=== PATIENT | female | born 1955 | race Caucasian/White ===

== ENCOUNTER 2017-03-01 07:43 | Day surgery (SDC) | payer BC ==
--- NOTE | 2017-02-10 16:25 | HP ---
PREOPERATIVE HISTORY AND PHYSICAL: DATE OF ADMISSION/SURGERY: 03/11/17 [facility] ATTENDING SURGEON: Karyn Casiano MD (DICTATED BY MCKAYLA ZHOU) PROCEDURE: Right ring finger trigger finger release and excision of mass. CHIEF COMPLAINT: Right ring finger triggering and adjacent mass. HISTORY OF PRESENT ILLNESS: This is a 61-year-old female who complains of locking of her right ring finger and a mass on the volar aspect of the right ring finger as well. It has been bothering her for several months. 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 She denies any associated tingling or numbness. She denies injury. She is interested in surgical intervention at this time in the form of a right ring finger trigger release and excision of the mass. PAST MEDICAL HISTORY: Unremarkable. PAST SURGICAL HISTORY: 1. . 2. Ovarian cyst removal. 3. Left shoulder surgery. 4. Basal cell carcinoma removal from nose. CURRENT MEDICATIONS: 1. Ibuprofen 400 mg t.i.d. p.r.n. 2. Vitamin D 1000 units daily. ALLERGIES: No known drug allergies. FAMILY MEDICAL HISTORY: Significant for oral cancer. SOCIAL HISTORY: The patient is retired. She denies tobacco use and recreational drug use. She does admit to alcohol use on occasion. REVIEW OF SYSTEMS: General: Negative for fevers, chills, or night sweats. No known anesthesia problems. HEENT: Negative for headache, lightheadedness or syncopal episodes. Integumentary: Negative for abrasions, lesions, or open wounds. Cardiothoracic: Negative for hypertension, chest pain, palpitations or edema. Pulmonary: Negative for shortness of breath with exertion, chronic cough, COPD. GI: Positive for occasional nausea in the evening. Negative for vomiting, diarrhea, constipation, or GERD. : Negative for nocturia, urinary frequency, urgency, history of UTIs or kidney problems. Musculoskeletal: Positive for current complaint along with intermittent back pain. Neurological: Negative for paresthesias, numbness, history of seizures, stroke or epilepsy. Endocrine: Negative for diabetes or thyroid issues. Hematologic: Negative for easy bruising, anemia, excessive bleeding or history of DVT. Infectious Disease : Negative for history of MRSA, hepatitis C or HIV. PHYSICAL EXAMINATION GENERAL: A well-developed, well-nourished 61-year-old female in no acute distress. VITAL SIGNS: Height 5 feet 1/2 inch, weight 135 pounds, pulse rate 60, blood pressure 136/84. HEENT: Normocephalic, atraumatic. Pupils are equal, round, and reactive to light and accommodation. Extraocular movements are intact. Throat is clear. NECK: Supple. No palpable lymph nodes. PULMONARY: Lungs are clear to auscultation bilaterally. No wheezes, rales or rhonchi. CARDIOTHORACIC: Regular rate and rhythm. S1, S2. No murmurs, rubs, or gallops. No edema. ABDOMEN: Positive bowel sounds. Soft, nontender. MUSCULOSKELETAL: On exam of her right hand, she has a cystic mass at the A1 abhinav of her ring finger. She lacked a little bit of full extension. When she flexes, her finger locks in flexion. Skin is intact. Neurovascular function is intact. NEUROLOGIC: Alert and oriented x3. Cranial nerves II through XII are intact. Sensation is intact to light touch. PERIPHERAL VASCULAR: 2+ radial and ulnar pulses. Negative Rodney test. IMAGING STUDIES: X-rays of the right hand, AP lateral and oblique appear normal. IMPRESSION: Right ring finger trigger finger with ganglion cyst on the tendon sheath. PLAN: The patient is scheduled to undergo a right ring finger trigger finger release and excision of mass with Dr. Casiano on 03/11/17. She will return to the office 10 to 14 days postop for followup and suture removal. A prescription for Ultracet was e-scribed to the patient's pharmacy for postoperative pain management. MCKAYLA ZHOU [id number]/[facility] #: [id number] DUANE
[~2017-03-01 07:43] MED LIST: Lidocaine 1% INJ* 10 MG/ML 30 ML SDV ONE
[2017-03-01] MEDS ORDERED: Buffered Lidocaine 1% SYRIN* 5 ML/SYR SYRINGE ONE (08:05)
[2017-03-01] MEDS ORDERED: fentaNYL* 50 MCG/ML 2 ML VIAL (100 MCG VIAL) ONE (09:34)
[2017-03-01] MEDS ORDERED: Midazolam* 1 MG/ML 2 ML VIAL (2 MG) ONE (09:34)
[2017-03-01 10:14] VITALS: BP 130/75
--- NOTE | 2017-03-02 02:49 | OP ---
OPERATIVE REPORT: DATE OF OPERATION: 03/01/17 - [facility] DATE OF : 51 SURGEON: Karyn Casiano MD ORDER TAKER: MCKAYLA Scanlon ANESTHESIOLOGIST: Charli Briones MD ANESTHESIA: Local Mac. PRE-OP DIAGNOSIS: Right ring finger trigger finger, and right ring finger mass and right wrist mass. POST-OP DIAGNOSIS: Right ring finger trigger finger, and right ring finger mass and right wrist mass. OPERATIVE PROCEDURE: Right ring finger trigger release, right ring finger mass excision, and right wrist mass excision. ESTIMATED BLOOD LOSS: Zero. TOURNIQUET TIME: About 15 minutes. INDICATIONS FOR PROCEDURE: Kimberley is a 61-year-old female with painful triggering of her right ring finger and a mass associated with it. Additionally , she has a mass at the tip of her radial styloid. She presents for excision of 2 masses and her ring finger trigger release. DESCRIPTION OF PROCEDURE: The patient was brought to the operating room and was given a sedation anesthetic and a local infiltration with a total of 10 cc of 1% plain lidocaine. The skin of her right hand and forearm was prepped and draped in the usual sterile fashion. The hand and forearm were exsanguinated and the tourniquet elevated to 250 mmHg. A transverse incision was made centered over the A1 abhinav of the right ring finger. We dissected through the subcutaneous tissue down to the A1 abhinav. The digital neurovascular bundles were retracted by the surgical consultant, Ellen Curry. There was a ganglion cyst emanating from the flexor tendon sheath and this was removed. The sheath was completely incised longitudinally releasing the FDP and FDS tendons, which were in good condition. The wound was irrigated and the skin edges were reapproximated with 4-0 Nylon suture. Next, the longitudinal incision was made on the radial aspect of the wrist. I dissected through the subcutaneous tissue. Braces of the radial sensory nerve were located and retracted by the surgical consultant, Ellen Curry. There was a ganglion cyst emanating from the first dorsal compartment. This was removed and sent for pathology. The remainder of the compartment was released longitudinally and the APL and EPB tendons were in good condition. The wounds was irrigated and the skin edges were reapproximated with 4-0 nylon suture. The wound was dressed with Xeroform, 4x4, Webril, and an JONO wrap. The patient tolerated the procedure well and was brought to the recovery room in good condition. [id number]/[facility] #: [id number] DUANE
== END 2017-03-01 10:35 | disposition home or self-care (01) ==
LOC: OREAST 07:43
PROVIDERS: ATTEND Orthopaedic Surgery
DX: M67.441 Ganglion, right hand (principal); M67.431 Ganglion, right wrist; M65.341 Trigger finger, right ring finger
CPT/HCPCS: 88304; J2001; J2250; J3010

== ENCOUNTER 2017-04-11 11:27 | Emergency (ER) | payer SELFPAY ==
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
[2017-04-11 13:51] VITALS: BP 132/81
== END 2017-04-11 13:55 | disposition home or self-care (01) ==
LOC: ED 11:27
DX: S16.1XXA Strain of muscle, fascia and tendon at neck level, initial encounter (principal); V43.52XA Car driver injured in collision with other type car in traffic accident, initial encounter; Y93.89 Activity, other specified; Y92.410 Unspecified street and highway as the place of occurrence of the external cause
CPT/HCPCS: 72125; 99282